=== PATIENT | male | born 1945 | race Caucasian/White ===

== ENCOUNTER → 2016-02-29 | Outpatient (CLI) | payer OTHER, MEDICARE ==
--- NOTE | 2016-02-29 16:03 | US ---
Thyroid Sonography Clinical History: 71-year-old male presenting for follow up of thyroid nodules. ICD-10 Diagnostic Code: E04.1. Technique: A linear 12 MHz transducer was used to sonographically evaluate the thyroid gland. Color D oppler was also used. Cine clips are stored on PACS. Cursory evaluation of the cervical lymph node ch ains was obtained. Comparison Studies: Thyroid sonography dated October 06, 2012, and January 19, 2012, as well as ultras ound-guided fine-needle aspiration of the right thyroid lobe nodule, dated July 28, 2011. Findings: Right Thyroid Lobe: This measures 5.8 x 2.8 x 3.2 cm. In the right thyroid lobe occupying the middle aspect, there is a 3.1 x 2.4 x 2.9 cm cystic-solid mass which previously measured 3.2 x 1.4 x 1.8 cm in September 2012 and 2.7 x 1.4 x 1.6 cm in January 2012. The nodule appears to be more cystic today. T his nodule was previously biopsied in July 2011 revealing follicular cells consistent with a benign n odule (favor adenomatous goiter). Isthmus: This measures 0.5 cm in AP diameter. Left Thyroid Lobe: This measures 3.7 x 1.5 x 1.0 cm. In the medial upper pole near the junction with the lateral margin of the isthmus, there is a heterogeneous solid nodule measuring 0.8 x 0.7 x 0.5 cm . There is some intrinsic vascularity with color Doppler. On the previous studies this measured 1.1 x 0.7 x 0.8 cm in September 2012, and 1.0 x 0.6 x 0.8 cm in January 2012. There is no pathologic cervical lymphadenopathy. Impression: There has been an interval increase in the size of the dominant nodule involving the righ t lobe of the thyroid gland, although the interval increase appears to be related to more colloid cys tic component than peripheral soft tissue nodular component. If clinically indicated, an ultrasound-g uided re-aspiration could be considered.
== END ==
LOC: BMCIMAGING 10:53
PROVIDERS: ATTEND Internal Medicine Endocrinology, Diabetes & Metabolism
DX: E04.2 Nontoxic multinodular goiter (principal)
CPT/HCPCS: 76536-PO

== ENCOUNTER → 2016-10-21 | Outpatient (CLI) | payer OTHER, MEDICARE | LOC: FIMAGING 15:32 | PROVIDERS: ATTEND Internal Medicine Endocrinology, Diabetes & Metabolism | DX: E04.1 Nontoxic single thyroid nodule (principal) ==